=== PATIENT | female | born 1960 | race Caucasian/White ===

== ENCOUNTER 2025-02-17 10:42 | Emergency (ER) | payer MEDICARE, OTHER ==
[~2025-02-17] VITALS: Ht 154.9 cm; Wt 54.4 kg
[~2025-02-17 10:42] MED LIST: ALBU90OI INH; AZIT250 PO; CIPR500 PO; DIAZ10; PHENA200 PO
== END 2025-02-17 13:33 | disposition home or self-care (01) ==
LOC: ER 10:42
DX: S93.401A Sprain of unspecified ligament of right ankle, initial encounter (principal); J44.9 Chronic obstructive pulmonary disease, unspecified; Z87.891 Personal history of nicotine dependence; Z88.0 Allergy status to penicillin; Z88.6 Allergy status to analgesic agent; Z88.5 Allergy status to narcotic agent; W22.8XXA Striking against or struck by other objects, initial encounter
CPT/HCPCS: 73610; 99283-25